=== PATIENT | female | born 1970 | race Caucasian/White ===

== ENCOUNTER 2022-02-07 14:26 | Outpatient (CLI) | payer OTHER, SELFPAY ==
--- NOTE | ~2022-02-07 | XR_ITS ---
XR chest 2V DATE: 02/07/2022 14:51 INDICATION: Dyspnea, cough, shortness of breath. Smoker. TECHNIQUE: 2 views COMPARISON: None FINDINGS: Moderate bilateral hyperinflation. No pulmonary infiltrate or consolidation, pleural effusi on or pulmonary vascular congestion or pneumothorax. Normal heart size. No hilar or mediastinal enlar gement. IMPRESSION: Moderate bilateral hyperinflation; no active cardiopulmonary disease Reviewed, dictated and finalized at location B. IMPRESSION: Moderate bilateral hyperinflation; no active cardiopulmonary diseas e
== END 2022-02-07 14:27 | disposition home or self-care (01) ==
PROVIDERS: PCP Physician Assistant; Visit Provider Physician Assistant
DX: R06.00 Dyspnea, unspecified (principal)
CPT/HCPCS: 71046

== ENCOUNTER 2022-06-08 14:13 | Emergency (ER) | payer OTHER, SELFPAY ==
--- NOTE | ~2022-06-08 | XR_ITS ---
EXAMINATION: XR chest 1V portable INDICATION: Cough and fever TECHNIQUE: Portable AP chest at 1517 hours COMPARISON: 02/07/2022 FINDINGS: The lungs are free of acute opacities. No pleural effusion or pneumothorax. The cardiomedia stinal silhouette is normal. IMPRESSION: 1. No acute cardiopulmonary abnormality. Reviewed, dictated and finalized at location L. [employer]
[2022-06-08 14:35] VITALS: BP 148/76; PULSE 104; RESP 20; TEMP 36.7; O2SAT 100
[2022-06-08 14:38] VITALS: O2SAT 100
--- NOTE | 2022-06-08 15:02 | ECG_ITS ---
Measurements Intervals Seltzer Rate: 99 P: 71 TX: 134 QRS: 62 QRSD: 98 T: 41 QT: 316 QTc: 406 Interpretive Statements SINUS RHYTHM SMALL, NON DIAGNOSTIC INFERIOR Q-WAVE WITHIN NORMAL LIMITS NO PREVIOUS ECG AVAILABLE FOR COMPARISON Electronically Signed On 06-09-2022 14:36:16 HEALTHCARE ADMINISTRATOR by Domenico Núñez M.D.
--- NOTE | 2022-06-08 15:02 | ED.GENADULT ---
HPI - General Adult General Chief complaint: Shortness of Breath/Dyspnea Stated complaint: UNKNOWN Time Seen by Provider: 06/08/22 14:20 History of Present Illness HPI narrative: The patient is a 51-year-old woman with history of hypertension, anxiety disorder, COPD but not on inhalers or nebulizer treatments or oxygen, ex-smoker. She is status post bilateral tubal ligation, hysterectomy, and polypectomy in her vocal cords. She does take Valium as needed 5 mg. For the last 3 days, the patient has had upper respiratory tract infection symptoms consisting of a fever maximum 103?, chills, but no diaphoresis. Also has diffuse myalgias with aches and pains as well as a headache. Occasional cough. No rhinorrhea or nasal congestion but does have a sore throat. With her coughing spells, she has developed chest pain which is centered in the upper sternal region throat region. She felt that she was not going to make it so she took a dose of diazepam on the way here, 5 mg. No abdominal pain or nausea or vomiting or UTI symptoms. Related Data Allergies Allergy/AdvReac Type Severity Reaction Status Date / Time No Known Allergies Allergy Unverified 11/09/15 14:07 Review of Systems Review of Systems: All systems reviewed & are unremarkable except as noted in HPI and below Constitutional: Constitutional: Reports no additional constitutional complaints, Denies anorexia, Reports body ache(s), Reports chills, Denies excessive sweating, Reports fatigue, Reports fever(s), Denies frequent falls, Reports headache(s), Reports malaise and Denies poor appetite Eyes: Eyes: Reports no additional eye complaints, Denies blurry vision, Denies change in vision, Denies irritation, Denies itchy eyes and Denies photophobia ENT: Reports system reviewed and no additional complaints, except as documented, Reports Normal hearing present, Denies change in voice, Denies dysphagia, Denies vertigo, Denies dizziness, Denies ear discharge, Reports headache(s), Denies hearing loss, Denies hoarseness, Denies nasal congestion, Denies neck pain, Denies sinus pressure, Reports sore throat and Denies throat swelling Cardiovascular: Cardiovascular: Reports no additional cardiovascular complaints, Denies chest pain, Denies syncope, Denies rapid heart rate, Denies irregular heart rhythm, Denies leg edema, Denies dyspnea and Denies slow heart rate Respiratory: Respiratory: Reports no additional respiratory complaints, Reports cough, Denies dyspnea, Denies stridor and Denies wheezing Gastrointestinal: Gastrointestinal: Reports no additional gastrointestinal complaints, Denies abdominal pain, Denies melena, Denies hematochezia, Denies dysphagia, Denies diarrhea, Denies nausea and Denies vomiting Genitourinary: Genitourinary: Denies hematuria, Denies urinary frequency, Denies dysuria, Denies flank pain and Denies urinary urgency Musculoskeletal: Musculoskeletal: Reports no additional musculoskeletal complaints, Denies abnormal gait, Denies back pain, Reports myalgias, Denies arthralgias, Denies joint swelling, Denies limited range of motion, Denies muscle cramps, Denies muscle weakness, Denies neck pain and Denies numbness Integumentary/Breasts: Skin/Breast: Reports system reviewed and no additional complaints, except as docu, Denies breast pain, Denies change in pigmentation, Denies pruritus, Denies erythema and Denies wounds Neurologic: Reports system reviewed and no additional complaints, except as documented, Reports Normal hearing present, Denies Abnormal speech present, Denies abnormal gait, Denies confusion, Denies vertigo, Denies dizziness, Denies syncope, Denies frequent falls, Denies headache(s), Denies focal weakness, Denies numbness and Denies paresthesias Psychiatric: Psychiatric: Reports no additional psychiatric complaints, Reports anxiety and Denies confusion Endocrine: Endocrine: Reports no additional endocrine complaints, Denies cold intolerance, Denies excessive sweating, De
[2022-06-08 15:31] LABS: Basophils Absolute Auto 0.01 K/mm3 (0.00-0.10); Basophils Percent Auto 0.2 % (0.0-1.0); Hematocrit 39.9 % (35.0-49.0); Hemoglobin 13.6 g/dL (12.0-15.0); Immature Granulocyte Absolute 0.02 K/mm3 (0.00-0.00); Immature Granulocyte Percent A 0.3 % (0.0-0.0); Lymphocytes Percent Auto 11.1 % (18.0-42.0); Mean Corpuscular HGB Conc 34.1 g/dL (32.0-36.0); Mean Corpuscular Hemoglobin 31.3 pg (27.0-31.0); Mean Corpuscular Volume 91.7 fL (78.0-102.0); Mean Platelet Volume 9.5 fl (9.2-11.8); Monocytes Absolute Auto 0.54 K/mm3 (0.10-0.90); Monocytes Percent Auto 8.6 % (2.0-11.0); Neutrophils Percent Auto 79.8 % (50.0-70.0); Platelet Count Result 193 K/mm3 (150-420); Red Blood Count 4.35 M/mm3 (4.20-5.40); White Blood Count 6.3 K/mm3 (4.8-10.8)
[2022-06-08] MEDS: IBUPROFEN 400 MG TABLET 800 MG PO (15:45)
[2022-06-08] MEDS: ACETAMINOPHEN 500 MG TABLET 1000 MG PO (15:45)
[2022-06-08 15:46] LABS: Strep Group A RT-PCR NOT DETECTED (Negative)
[2022-06-08 15:49] LABS: Influenza A QL RT-PCR Positive (Negative); Influenza B QL RT-PCR Negative (Negative); SARS-CoV-2 RNA PCR Negative (Negative)
[2022-06-08 15:50] LABS: D Dimer 0.24 mg/L (0.19-0.50)
[2022-06-08 15:52] LABS: Alanine Aminotransferase 32 U/L (14-59); Albumin Level 3.8 g/dL (3.4-5.0); Alkaline Phosphatase 47 U/L (46-116); Anion Gap 11 mmol/L (8-16); Aspartate Amino Transferase 17 U/L (15-37); Bilirubin,Total 0.4 mg/dL (0.00-1.00); Blood Urea Nitrogen 6 mg/dL (7-18); CRP 8.6 mg/dL (0.0-0.9); Calcium 8.6 mg/dL (8.5-10.1); Carbon Dioxide 25 mmol/L (21-32); Chloride 98 mmol/L (98-108); Estimated CRCL calculation 68 ml/min; Estimated Glomerular Filt Rate > 60; Glucose 114 mg/dL (70-99); Osmolality Calculated 276 mOsm/kg (285-295); Potassium 3.6 mmol/L (3.5-5.1); Sodium 134 mmol/L (136-145); Total Protein 7.3 g/dL (6.4-8.2)
[2022-06-08 15:53] LABS: Troponin I < 4.0 ng/L (0.00-60.4)
[2022-06-08 15:53] LABS: RSV RNA, RT-PCR Negative (Negative)
[2022-06-08 17:10] LABS: Erythrocyte Sedimentation Rate 26 mm/hr (0-20)
[2022-06-08] MEDS: BENZONATATE 100 MG CAPSULE PO (17:39)
[2022-06-08 17:41] VITALS: BP 102/65; PULSE 91; RESP 20; TEMP 36.1; O2SAT 97
[2022-06-08 17:54] VITALS: PULSE 106
== END 2022-06-08 17:54 | disposition home or self-care (01) ==
PROVIDERS: Emergency Provider Emergency Medicine; PCP Physician Assistant
DX: J10.1 Influenza due to other identified influenza virus with other respiratory manifestations (principal); F41.9 Anxiety disorder, unspecified; I10 Essential (primary) hypertension; J44.9 Chronic obstructive pulmonary disease, unspecified; Z87.891 Personal history of nicotine dependence; Z20.822 Contact with and (suspected) exposure to COVID-19
CPT/HCPCS: 36415; 71045; 80053; 84484; 85025; 85380; 85652; 86140; 87637; 87651; 93005; 99284; A9270

== ENCOUNTER 2022-08-25 13:50 | Emergency (ER) | payer BC, SELFPAY ==
--- NOTE | ~2022-08-25 | XR_ITS ---
EXAMINATION: XR chest 2V 08/25/2022 15:04 INDICATION: Chest pain. PROCEDURE: Two-view chest COMPARISON: 06/08/2022 FINDINGS: The lungs are clear. The cardiomediastinal silhouette is within normal limits. There are no pleural effusions. There is no pneumothorax suspected. IMPRESSION: 1: NO ACUTE CARDIOPULMONARY DISEASE. Reviewed, dictated and finalized at location A.
[2022-08-25 14:20] VITALS: BP 179/98; PULSE 80; RESP 20; TEMP 36.8; O2SAT 100
--- NOTE | 2022-08-25 14:39 | ECG_ITS ---
Measurements Intervals Reeves Rate: 96 P: 73 MT: 157 QRS: 44 QRSD: 90 T: 46 QT: 342 QTc: 433 Interpretive Statements SINUS RHYTHM MINIMAL Q WAVES- INFERIOR LEADS CONSIDER ANTERIOR INFARCT, AGE INDETERMINATE BASELINE ARTIFACT- II, III, AVR ABNORMAL ECG COMPARED TO ECG 06/08/2022 15:12:50 NO SIGNIFICANT CHANGES Electronically Signed On 08-25-2022 16:00:13 CDT by Skyler Ramirez D.O.
--- NOTE | 2022-08-25 14:41 | ED.GENADULT ---
HPI - General Adult General Chief complaint: Anxiety Stated complaint: lymph nodes swollen/not feeling well/throat hurts Time Seen by Provider: 08/25/22 14:09 History of Present Illness HPI narrative: the patient is a 52-year-old woman with history of anxiety, on diazepam, last use of diazepam was 2 weeks ago. She also has hypertension and has not taken medications elevated blood pressure for 2 weeks. She has been at [facility] for cervical lymphadenopathy. She had an FNA on June 23, 2022 that did not reveal any lymphoma. This was preceded by an ultrasound of the neck on June 16, 2022 that showed mild cervical lymphadenopathy. She subsequently underwent a chest x-ray on 07/19/[address] of the head that were both unremarkable. She has had routine blood work that was negative. She is scheduled by her PCP for a nuclear medicine stress test, event monitor, and an echo in the next few weeks. She presents with continued complaints of which she describes as swelling in the neck, with tender lymph nodes right, and now left, anterior cervical chain. She had an anxiety attack at work, whereby she felt her heart rate go up with an episode of chest discomfort radiating to the left shoulder, tingling in the hands and feet, lasted approximately 1 hour. She calmed down on her own, but now is getting worked up again. She is also concerned about lumps involving the roof of the mouth. She has seen an ENT for this in the past. She denies other complaints. Related Data Home Medications Medication Instructions Recorded Confirmed diazepam 5 mg tablet 5 mg PO DAILY 08/25/22 08/25/22 losartan 100 mg tablet 100 mg PO DAILY 08/25/22 08/25/22 Allergies Allergy/AdvReac Type Severity Reaction Status Date / Time No Known Allergies Allergy Unverified 11/09/15 14:07 Review of Systems Review of Systems: All systems reviewed & are unremarkable except as noted in HPI and below Constitutional: Constitutional: Reports as per HPI, Reports no additional constitutional complaints, Denies chills, Denies excessive sweating, Denies fatigue, Denies fever(s), Denies headache(s) and Denies weakness Eyes: Eyes: Reports as per HPI, Reports no additional eye complaints, Denies change in vision and Denies photophobia ENT: Reports system reviewed and no additional complaints, except as documented, Reports as per HPI, Denies dysphagia, Denies vertigo, Denies dizziness, Denies headache(s), Denies lip swelling, Denies nasal congestion, Denies sore throat, Denies throat swelling and Denies tongue swelling Comments: feels a lump in her throat. and feels that her neck is swollen. Cardiovascular: Cardiovascular: Reports as per HPI, Reports no additional cardiovascular complaints, Reports chest pain, Denies syncope, Denies rapid heart rate and Denies dyspnea Respiratory: Respiratory: Reports as per HPI, Reports no additional respiratory complaints, Denies chest congestion, Denies cough, Denies dyspnea and Denies wheezing Gastrointestinal: Gastrointestinal: Reports as per HPI, Reports no additional gastrointestinal complaints, Denies abdominal pain, Denies constipation, Denies dysphagia, Denies diarrhea, Denies nausea and Denies vomiting Genitourinary: Genitourinary: Reports as per HPI, Denies hematuria, Denies urinary frequency, Denies dysuria, Denies urinary incontinence and Denies urinary urgency Musculoskeletal: Musculoskeletal: Reports no additional musculoskeletal complaints, Denies back pain, Denies myalgias, Denies arthralgias, Denies joint swelling and Denies numbness Integumentary/Breasts: Skin/Breast: Reports system reviewed and no additional complaints, except as docu, Denies pruritus, Denies erythema, Denies rash and Denies skin ulcer Neurologic: Reports system reviewed and no additional complaints, except as documented, Reports as per HPI, Denies confusion, Denies vertigo, Denies dizziness, Denies syncope, Denies headache(s), Denies focal weakness, D
[2022-08-25 15:02] LABS: Basophils Absolute Auto 0.02 K/mm3 (0.00-0.10); Basophils Percent Auto 0.3 % (0.0-1.0); Eosinophils Absolute Auto 0.02 K/mm3 (0.02-0.50); Eosinophils Percent Auto 0.3 % (1.0-6.0); Hematocrit 41.6 % (35.0-49.0); Hemoglobin 14.4 g/dL (12.0-15.0); Immature Granulocyte Absolute 0.01 K/mm3 (0.00-0.00); Immature Granulocyte Percent A 0.2 % (0.0-0.0); Lymphocytes Absolute Auto 1.92 K/mm3 (1.10-4.50); Lymphocytes Percent Auto 30.5 % (18.0-42.0); Mean Corpuscular HGB Conc 34.6 g/dL (32.0-36.0); Mean Corpuscular Hemoglobin 31.8 pg (27.0-31.0); Mean Corpuscular Volume 91.8 fL (78.0-102.0); Mean Platelet Volume 9.5 fl (9.2-11.8); Monocytes Absolute Auto 0.48 K/mm3 (0.10-0.90); Monocytes Percent Auto 7.6 % (2.0-11.0); Neutrophils Absolute Auto 3.8 K/mm3 (1.7-7.2); Neutrophils Percent Auto 61.1 % (50.0-70.0); Platelet Count Result 250 K/mm3 (150-420); Red Blood Count 4.53 M/mm3 (4.20-5.40); Red Cell Distribution Width 11.5 % (11.6-14.4); White Blood Count 6.3 K/mm3 (4.8-10.8)
[2022-08-25 15:06] LABS: Appearance Urine Clear (Clear); Bilirubin Urine Negative (Negative); Blood Urine Trace-Intact (Negative); Color Urine Light Yellow (Yellow); Glucose Urine UA Negative (Negative); Ketones Urine Trace (Negative); Leukocyte Esterase Ur Negative LEU/UL (Negative); Nitrate Urine Negative (Negative); Protein Urine Negative (Negative); Specific Grav Ur 1.025 (1.010-1.020); Urobilinogen Urine 0.2 mg/dL (0.2-1.0)
[2022-08-25 15:17] LABS: Alanine Aminotransferase 21 U/L (14-59); Albumin Level 4.4 g/dL (3.4-5.0); Alkaline Phosphatase 50 U/L (46-116); Anion Gap 9 mmol/L (8-16); Aspartate Amino Transferase 15 U/L (15-37); Bilirubin,Total 0.5 mg/dL (0.00-1.00); Blood Urea Nitrogen 9 mg/dL (7-18); Calcium 9.3 mg/dL (8.5-10.1); Carbon Dioxide 29 mmol/L (21-32); Chloride 102 mmol/L (98-108); Estimated CRCL calculation 83 ml/min; Estimated Glomerular Filt Rate > 60; Glucose 94 mg/dL (70-99); Osmolality Calculated 288 mOsm/kg (285-295); Potassium 3.6 mmol/L (3.5-5.1); Sodium 140 mmol/L (136-145); Total Protein 7.4 g/dL (6.4-8.2)
[2022-08-25] MEDS: KETOROLAC 30 MG/ML VIAL (*BKC) IV PUSH (15:17)
[2022-08-25] MEDS: MAG HYDROX/ALUMINUM HYD/SIMETH 30 ML, PHENobarb/HYOSCY/ATROPINE/SCOP 32.4 MG, LIDOCAINE... PO (15:17)
[2022-08-25 15:20] LABS: Add Urine Microscopic? YES; Troponin I < 4.0 ng/L (0.00-60.4)
[2022-08-25 15:21] LABS: Bacteria Urine Trace /hpf; RBC Urine 0-2 /hpf (0-2); Squamous Epithelial Cell Urine Few /hpf (Few); WBC Urine 0-3 /hpf (0-3)
[2022-08-25 15:22] LABS: Monoscreen Negative (Negative); Negative Monotest Control Negative (Negative); Positive Monotest Control Positive (Positive)
[2022-08-25 15:38] LABS: Strep Group A RT-PCR NOT DETECTED (Negative)
[2022-08-25 15:42] LABS: Influenza A QL RT-PCR Negative (Negative); Influenza B QL RT-PCR Negative (Negative); SARS-CoV-2 RNA PCR Negative (Negative)
[2022-08-25 15:46] LABS: RSV RNA, RT-PCR Negative (Negative)
[2022-08-25 16:55] VITALS: BP 140/76; PULSE 72; RESP 20; TEMP 36.8; O2SAT 94
== END 2022-08-25 17:55 | disposition home or self-care (01) ==
PROVIDERS: Emergency Provider Emergency Medicine; PCP Physician Assistant
DX: F41.9 Anxiety disorder, unspecified (principal); I10 Essential (primary) hypertension; F17.200 Nicotine dependence, unspecified, uncomplicated; Z20.822 Contact with and (suspected) exposure to COVID-19
CPT/HCPCS: 36415; 71046; 80053; 81001; 84484; 85025; 86308; 87637; 87651; 93005; 96374; 99284; A9270; J1885

== ENCOUNTER 2023-12-23 10:16 | Emergency (ER) | payer BC, SELFPAY ==
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
[2023-12-23 10:27] VITALS: BP 174/75; PULSE 68; RESP 16; TEMP 36.4; O2SAT 100
[2023-12-23 10:54] VITALS: BP 174/75; PULSE 68; RESP 16; TEMP 36.4; O2SAT 100
== END 2023-12-23 11:25 | disposition home or self-care (01) ==
PROVIDERS: Emergency Provider Nurse Practitioner Family; PCP Family Medicine
DX: S80.01XA Contusion of right knee, initial encounter (principal); W19.XXXA Unspecified fall, initial encounter; F17.200 Nicotine dependence, unspecified, uncomplicated; I10 Essential (primary) hypertension; J43.9 Emphysema, unspecified; F41.9 Anxiety disorder, unspecified
CPT/HCPCS: 73564; 99213; G0463

== ENCOUNTER 2024-06-18 13:24 | Emergency (ER) | payer OTHER, SELFPAY ==
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
--- NOTE | ~2024-06-18 | XR_ITS ---
XR foot RT min 3V Ordering provider: Zeb Tanner MD History: . foot pain . Comparison: None. FINDINGS: BONES: Fracture of the lateral malleolus. JOINT SPACES: Normal. No tarsal coalition. SOFT TISSUES: Normal. IMPRESSION: Nondisplaced fracture of the lateral malleolus. Reviewed, dictated and finalized at location A. DOCTOR
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
[2024-06-18 13:26] VITALS: BP 147/96; PULSE 87; RESP 18; TEMP 36.8; O2SAT 99
[2024-06-18] MEDS: ONDANSETRON HCL ODT 4 MG TABLET PO (14:52)
[2024-06-18] MEDS: HYDROmorphone HCL INJ (*CRX) 2 MG/ML VIAL 0.5 MG IM (14:52)
[2024-06-18 14:54] VITALS: BP 141/75; PULSE 74; RESP 18; TEMP 37.3; O2SAT 98
[2024-06-18 15:40] VITALS: BP 122/85; PULSE 79; RESP 20; TEMP 37.2; O2SAT 99
== END 2024-06-18 15:40 | disposition home or self-care (01) ==
PROVIDERS: Emergency Provider Internal Medicine Critical Care Medicine; PCP Physician Assistant
DX: S82.64XA Nondisplaced fracture of lateral malleolus of right fibula, initial encounter for closed fracture (principal); X50.0XXA Overexertion from strenuous movement or load, initial encounter; F17.210 Nicotine dependence, cigarettes, uncomplicated
CPT/HCPCS: 29515; 73610; 73630; 96372; 99283; A9270; J1171

== ENCOUNTER 2024-06-23 09:42 | Outpatient (CLI) | payer OTHER, SELFPAY ==
--- NOTE | ~2024-06-23 | CT_ITS ---
EXAMINATION: CT ankle RT wo con DATE: 06/23/2024 10:04 INDICATION: Other fracture of right lower leg, initial encounter. TECHNIQUE: Computed tomography (CT) of the right ankle was performed without intravenous contrast. Au tomated exposure control and iterative reconstruction technique were employed. The dose-length produc t was 180.40 mGy-cm. COMPARISON: Right ankle radiographs 06/20/2024 FINDINGS: There is a comminuted fracture of distal fibula including an oblique fracture with medial a spect 5 mm proximal to the level of the tibial plafond with 2 mm posterolateral displacement of the d istal fracture fragment and avulsion fractures at the attachments of anterior tibiofibular ligament a nd anterior talofibular ligament. There is a punctate avulsion fracture of anterior process of calcan eus seen on one sagittal image. There is an osteochondral lesion of medial talar dome with an in situ fragment. 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 There is subcutane ous edema involving the foot and ankle. IMPRESSION: 1. Comminuted fracture of distal fibula. 2. Punctate avulsion fracture of anterior process of calcaneus. 3. 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 Reviewed, dictated and finalized at location A. WASHER
== END 2024-06-23 09:43 | disposition home or self-care (01) ==
PROVIDERS: PCP Family Medicine; Visit Provider Orthopaedic Surgery
DX: S82.891A Other fracture of right lower leg, initial encounter for closed fracture (principal); S92.011A Displaced fracture of body of right calcaneus, initial encounter for closed fracture; X58.XXXA Exposure to other specified factors, initial encounter; M93.261 Osteochondritis dissecans, right knee
CPT/HCPCS: 73700

== ENCOUNTER 2025-01-05 18:04 | Emergency (ER) | payer OTHER, SELFPAY ==
[2025-01-05 18:04] VITALS: BP 184/105; PULSE 84; RESP 20; TEMP 36.7; O2SAT 99
--- OUTSIDE RECORDS SUMMARY | 2025-01-05 18:09 | XMS_ITS | Data Portability ---
Author Organization [facility] TWINVolodymyr Address [address] [facility] [place] [address] Care Team Providers Care System Software Developer Name Role Phone SLOANE DIAZ [facility] Assessment No assessment recorded. Plan of Treatment Reminders Order Date Submit Date Provider Last Modified By Organization Details Last Modified Time Details Appointments None recorded. Lab fecal fat, qualitative , stool 2024 025 [email or web address] [place] [facility], [address] [facility] [place], [address], 5 14:41:58 calprotecti n, stool 2024 025 [email or web address] Alli [place] [facility], [address] [facility] [place], [address], 5 14:42:08 lipase, serum or plasma 2024 025 [facility], 1 [facility] [place], [address], 5 12:19:10 CMP, serum or plasma 2024 025 [facility], [address] [facility] [place], [address], 5 12:19:10 CBC w/ auto diff 2024 025 [facility], [address] [facility] [place], [address], 5 12:19:10 iron + total iron-bindin g capacity (TIBC), serum 2024 025 [facility], 1 [facility] [place], [address], 5 12:19:10 ferritin, serum or plasma 2024 025 [facility], 1 [facility] [place], [address], 5 12:19:10 Referral gastroenter ologist referral 2024 025 ANDRES Patel MD, [address] [facility] [address], [place], [address], 5 13:48:48 physical therapist referral - 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 Surgeries None recorded. Imaging XR, foot, 3 or more view - point tenderness at base of 5th metatarsal after falls; has healing distal fibular fracture with abnormality seen on recent ankle XR [email or web address] [facility], [address] [facility] [place], [address], 5 17:17:47 XR, ankle, 3 or more view - fell on right leg; recovering from known fibula fracture 2024 025 [facility], 1 [facility] [place], [address], 5 19:56:52 Medication Orders escitalopra m 10 mg tablet 2024 025 [id number], [address] [place], [place], [id number], 5 16:21:39 escitalopra m 20 mg tablet 2023 025 ANDRES [facility] #[id number], [address], [place], [place], [id number], 16:19:48 Patient TargetsNo targets recorded. 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 not improved after seeing chiropractor Referring Physician: Sloane Diaz [facility], Encounter Date: 02/08/2024 [employer] Referral for Hematochezia Referring Physician: Sloaen Diaz [facility], Encounter Date: 08/26/2024 Results Created Date Observation Date Name Description Value Unit Range Abnormal Flag Note LastModifiedBy Organization Detail LastModifiedTime 02/04/2002/05/2024 RHEUM ATOID ARTHR ITIS PROFI LE rheumatoid factor (rf) <10.0 Not Available [facility] ([facility]) [address] [place], [address], 02/05/2024 12:36:43 02/04/20 24 02/05/2024 RHEUM ATOID ARTHR ITIS PROFI LE anti-ccp Ab, IgG/IgA 4 units 0-19 Negat javier <20 Weak posit javier 20 - 39 Moder ate posit javier 40 - 59 Stron g posit javier >59 Not Available [facility] ([facility]) [address] [place], [address], 02/05/2024 12:36:43 02/04/20 24 02/05/2024 LIPID PANEL cholesterol, total 245 mg/dL 100-19 9 above high normal Not Available [facility] ([facility]) [address] [place], [address], 02/05/2024 12:36:44 08/26/20 24 02/05/2024 LIPID PANEL triglyceride s 159 mg/dL 0-149 above high normal Not Available [facility] ([facility]) [address] [place], [address], 02/05/2024 12:36:44 02/04/20 24 02/05/2024 LIPID PANEL HDL cholesterol 53 mg/dL >39 Not Available [facility] ([facility]) [address] [place], [address], 02/05/2024 12:36:44 02/04/20 24 02/05/2024 LIPID PANEL VLDL cholesterol huy 29 mg/dL 5-40 Not Available [facility] ([facility]) [address] [place], [address], 02/05/2024 12:36:44 02/04/20 24 02/05/2024 LIPID PANEL LDL chol calc ([facility]) 163 mg/dL 0-99 above high normal Not Available [facility] ([facility]) [address] [place], [address], 02/05/2024 12:36:44 02/04/20 24 02/05/2024 BASIC METAB OLIC PANEL (8) glucose 106 mg/dL 70-99 above high normal Not Available [facility] ([facility]) [address] [place], [address], 02/05/2024 12:36:45 02/04/20 24 02/05/2024 BASIC METAB OLIC PANEL (8) BUN 15 mg/dL 6-24 Not Available [facility] ([facility]) [address] [place], [address], 02/05/2024 12:36:45 02/04/20 24 02/05/2024 BASIC METAB OLIC PANEL (8) creatinine 0.70 mg/dL 0.57-1 .00 Not Available [facility] ([facility]) [address] [place], [address], 02/05/2024 12:36:45 02/04/20 24 02/05/2024 BASIC METAB OLIC PANEL (8) eGFR 103 mL/mi n/1.7 3 >59 Not Available [facility] ([facility]) [address] [facility], [place], [address], 02/05/2024 12:36:45 02/04/20 24 02/05/2024 BASIC METAB OLIC PANEL (8) BUN/creatini ne ratio 21 9-23 Not Available [facility] ([facility]) [address] [facility], [place], [address], 02/05/2024 12:36:45 02/04/20 24 02/05/2024 BASIC METAB OLIC PANEL (8) sodium 141 mmol/ L 134-14 4 Not Available [facility] ([facility]) [address] [facility], [place], [address], 02/05/2024 12:36:45 02/04/20 24 02/05/2024 BASIC METAB OLIC PANEL (8) potassium 4.5 mmol/ L 3.5-5. 2 Not Available [facility] ([facility]) [address] [facility], [place], [address], 02/05/2024 12:36:45 02/04/20 24 02/05/2024 BASIC METAB OLIC PANEL (8) chloride 101 mmol/ L 96-106 Not Available [facility] ([facility]) [address] [place], [address], 02/05/2024 12:36:45 02/04/20 24 02/05/2024 BASIC METAB OLIC PANEL (8) carbon dioxide, total 24 mmol/ L 20-29 Not Available [facility] ([facility]) [address] [place], [address], 02/05/2024 12:36:45 02/04/20 24 02/05/2024 BASIC METAB OLIC PANEL (8) calcium 9.7 mg/dL 8.7-10 .2 Not Available [facility] ([facility]) [address] [place], [address], 02/05/2024 12:36:45 02/04/20 24 02/05/2024 HEMOG LOBIN A1C hemoglobin A1C 5.5 % 4.8-5. 6 Predi abete s: 5.7 - 6.4 Diabe alcon: >6.4 Glyce kaity contr ol for adult s with diabe alcon: <7.0 Not Available [facility] ([facility]) [address] [place], [address], 02/05/2024 12:36:46 02/04/20 24 02/05/2024 SEDIM ENTAT ION RATE- WESTE RGREN sedimentatio n rate-westerg rehan 3 mm/HR 0-40 Not Available [facility] ([facility]) [address] [place], [address], 02/05/2024 12:36:46 02/04/20 24 02/05/2024 C-SG CTIVE PROTE IN, QUANT C-reactive protein, quant 3 mg/L 0-10 Not Available [facility] ([facility]) [address] [place], [address], 02/05/2024 12:36:47 09/09/19 25 09/09/2024 FECAL FAT, QUALI TATIV E fats, neutral NORMAL Suri l (<60 Dropl ets/H PF) Not Available [facility] ([facility]) [address] [place], [address], 09/09/2024 16:37:44 09/09/19 25 09/09/2024 FECAL FAT, QUALI TATIV E fats, total NORMAL Suri l (<100 Dropl ets/H PF) Not Available [facility] ([facility]) [address] [place], [address], 09/09/2024 16:37:44 09/09/19 25 09/10/2024 CALPR OTECT IN, FECAL calprotectin , fecal 7 ug/g 0-120 Leticia ntrat ion Inter preta tion Follo w-Up < 5 - 50 ug/g Suri l None >50 -120 ug/g Borde rline Re-ev aluat e in 4-6 weeks >120 ug/g Abnor mal Repea t as clini sherlyn indic ated Not Available [facility] ([facility]) [address] [facility], [place], [address], 09/10/2024 16:38:04 06/23/19 25 06/23/2024 CT, ankle , w/o contr ast No observ ation record ed. [email or web address] [facility] [address] [address], [place], [address], 06/25/2024 13:42:06 08/29/19 25 08/28/2024 XR, ankle , 3 or more view No observ ation record ed. [address] , [place], [address], 09/04/2024 18:00:37 Result Notes None recorded. 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 2019 [place] [facility] 09:40:35 Esophageal dysphagia 15209873 Active 2020 D[place], [place] [facility] 14:48:19 Chronic anxiety 967825359 Active 2020 Jose Hernandez PA-C Attn: Dhaval g,[address] [facility], [place], [address], [place] [facility] 1 14:55:33 Essential hypertension 40674691 Active 2020 Jose Hernandez PA-C Attn: Dhaval mohr,[address] [facility], [place], [address], [place] [facility] 1 12:15:25 Generalized anxiety disorder 05429521 Active 2022 SLOANE DIAZ MD Attn: Dhaval mohr,[address] [facility], [place], [address], [place] [facility] 3 15:38:14 Dyslipidemia 649039026 Active 2023 SLOANE DIAZ MD Attn: Dhaval mohr,[address] [facility], [place], [address], [place] [facility] 4 17:42:55 Dysphagia 28638022 Active 2023 SLOANE DIAZ MD Attn: Dhaval mohr,[address] [facility], [place], [address], [place] [facility] 4 17:42:56 Vitamin D deficiency 21570342 Active 2023 SLOANE DIAZ MD Attn: Dhaval mohr,[address] [facility], [place], [address], [place] [facility] 4 10:46:38 Prediabetes 802584283 Active 2023 SLOANE DIAZ MD Attn: Joonscarlett mohr,[address] [facility], [place], [address], [place] [facility] 4 10:46:39 Problem Notes None recorded. Procedures Surgical History Date Name Laterality Status Provider Name and Address Organization Details Recorded Time 05/23/20 23 Date of Last Mammogram completed Abi Almeida MA [facility] 02/01/2024 16:10:17 12/27/19 19 Total hysterectomy completed Abi Almeida [facility] 01/09/2019 09:48:11 02/24/20 18 Date of Last Pap Smear completed Kati St MA [place] [facility] 01/19/2022 11:48:05 Tubal Ligation completed Abi [place]me[place] - [facility] 11/11/2018 14:33:33 Imaging Results None recorded. Procedure Notes None recorded. Medical Equipment None Reported. Allergies Allergen ID Allergen Name Allergen Category Reaction Reaction Severity Criticality Documentation Date Start Date Code Code System Note Provider Name and Address Organization Details Recorded Time 678878 No known allergy (situatio n) Not available Not available Not available Not available 09/30/2020 08172 6003 SNOMED [place] 14:48:18 488015 lisinopri l medicatio n cough swelling moderate moderate Not available 03/08/20212020 36392 RxNorm D[place] [facility] 14:48:18 Medications Name Sig Start Date Stop Date Status Note LastModified by Organization Details LastModified Time losartan 50 mg tablet Take 1 tablet every day by oral route for 90 days. 05/14 completed Not Available Not Available Not Available amoxicill in 500 mg capsule Take 1 capsule 3 times a day by oral route for 10 days. 09/01 completed Not Available Not Available Not Available buspirone 5 mg tablet Take 1 tablet twice a day by oral route for 90 days. 01/19 completed Not Available Not Available Not Available bupropion HCl SR 150 mg tablet,12 hr sustained -release Take 1 tablet twice a day by oral route for 90 days. 11/11 completed Not Available Not Available Not Available clonidine HCl 0.1 mg tablet Take 1 tablet by oral route as needed for 90 days. 09/20 completed Not Available Not Available Not Available prednison e 10 mg tablet Take 5 tablets every day by oral route for 5 days. 12/07 completed Not Available Not Available Not Available atorvasta tin 20 mg tablet Take 1 tablet every day by oral route for 90 days. 06/22 completed Not Available Not Available Not Available naproxen 375 mg tablet 03/08 completed Not Available Not Available Not Available clindamyc in HCl 300 mg capsule 04/04 completed Not Available Not Available Not Available ibuprofen 800 mg tablet 01/31 completed Not Available Not Available Not Available metoprolo l succinate ER 50 mg tablet,ex tended release 24 hr Take 1 tablet every day by oral route. active Not Available Not Available No t Available sumatript an 100 mg tablet 08/09 completed Not Available Not Available Not Available hydrocodo ne 5 mg-acetam inophen 325 mg tablet 1 {tbl} by oral route. 09/01 completed Not Available Not Available Not Available lisinopri l 20 mg tablet Take 1 tablet every day by oral route for 90 days. 12/07 completed Not Available Not Available Not Available Medrol (Elvis) 4 mg tablets in a dose pack Take 1 dose pk by oral route as directed . 08/16 completed Not Available Not Available Not Available prednison e 20 mg tablet 60 mg by oral route. 10/04 completed Not Available Not Available Not Available amlodipin e 5 mg tablet Take 1 tablet every day by oral route for 90 days. 03/08 completed Not Available Not Available Not Available omeprazol e 40 mg capsule,d elayed release 09/01 completed Not Available Not Available Not Available amoxicill in 875 mg tablet Take 1 tablet every 12 hours by oral route for 10 days. 09/30 completed Not Available Not Available Not Available alprazola m 0.25 mg tablet Take 1 tablet 3 times a day by oral route for 30 days. 06/16 completed Not Available Not Available Not Available diazepam 2 mg tablet TAKE ONE TABLET BY MOUTH THREE TIMES A DAY NEEDED FOR 30 DAYS 07/20 completed Not Available Not Available Not Available cephalexi n 500 mg capsule Take 1 capsule 3 times a day by oral route for 10 days. 03/08 completed Not Available Not Available Not Available venlafaxi ne 37.5 mg tablet Take 1 tablet twice a day by oral route as directed . 02/19 completed Not Available Not Available Not Available nitroglyc asad 0.4 mg sublingua l tablet Place 1 tablet by sublingu al route. 03/08 completed Not Available Not Available Not Available mupirocin calcium 2 % topical cream APPLY A SMALL AMOUNT TO THE AFFECTED AREA BY TOPICAL ROUTE 3 TIMES PER DAY FOR 10 DAYS 03/08 completed Not Available Not Available Not Available omeprazol e 20 mg capsule,d elayed release Take 20 mg by oral route. 03/08 completed Not Available Not Available Not Available aspirin 81 mg chewable tablet Chew 4 tablets by oral route. 12/08 completed Not Available Not Available Not Available hydrocort isone 2.5 % topical cream APPLY A THIN LAYER TO THE AFFECTED AREA(S) BY TOPICAL ROUTE 2 TIMES PER DAY 09/01 completed Not Available Not Available Not Available acetamino phen 300 mg-codein e 60 mg tablet 03/08 completed Not Available Not Available Not Available mupirocin 2 % topical ointment 03/08 completed Not Available Not Available Not Available ergocalci ferol (vitamin D2) 1,250 mcg (50,000 unit) capsule TAKE ONE CAPSULE BY MOUTH EVERY WEEK active Not Available Not Available No t Available ibuprofen 600 mg tablet 02/06 completed Not Available Not Available Not Available losartan 100 mg tablet Take 1 tablet every day by oral route for 90 days. 08/09 completed Not Available Not Available Not Available fluticaso ne propionat e 50 mcg/actua tion nasal spray,stevie pension Leeper 2 {spray}s by nasal route. 03/08 completed Not Available Not Available Not Available lisinopri l 2.5 mg tablet Take 2.5 mg by oral route. 09/30 completed Not Available Not Available Not Available diazepam 5 mg tablet TAKE 1 TABLET BY MOUTH THREE TIMES DAILY NEEDED active Not Available Not Available No t Available azithromy florence 500 mg tablet Take 1 tablet every day by oral route for 3 days. 08/16 completed Not Available Not Available Not Available escitalop cuca 10 mg tablet TAKE 1 TABLET BY MOUTH EVERY DAY 2024 active Not Available Not Available Not Avai lable escitalop cuca 20 mg tablet Take 1 tablet every day by oral route. 11/18 completed Not Available Not Available Not Available escitalop cuca 5 mg tablet TAKE 1 TABLET BY MOUTH EVERY DAY active Not Available Not Available No t Available Stool Softener 02/06 [facility] Not Available Not Available Not Available black cohosh 1 PO QD 02/19 completed Not Available Not Available Not Available Prilosec OTC 1 PO QD 07/25 completed Not Available Not Available Not Available vit G90-LD-pl ridoxine- AA no.15 1 PO QD 02/19 completed Not Available Not Available Not Available Dexilant 60 mg capsule, delayed release Take 1 capsule every day by oral route for 90 days. 12/07 completed Not Available Not Available Not Available Vitals Date Recorded Body height Body mass index (BMI) Body weight Oxygen saturation Oxygen saturation in Arterial blood by Pulse oximetry Heart rate Body temperature Respiratory rate Systolic And Diastolic Systolic And Diastolic Provider Name and Address Organization Details Last Updated DateTime 5 165.1 cm 29.5 kg/m2 91066.5 5 g 99 % 99 % 72 /min 97.9 [degF] 16 /min 180/117 mm[Hg] 203/103 mm[Hg] Radha Poole MA [facility] 5 17:03:15 Date Recorded Body height Body mass index (BMI) Body weight Body temperature Respiratory rate Heart rate Oxygen saturation Oxygen saturation in Arterial blood by Pulse oximetry Systolic And Diastolic Provider Name and Address Organization Details Last Updated DateTime 5 165.1 cm 29.5 kg/m2 63729 g 98.4 [degF] 16 /min 76 /min 98 % 98 % 185/97 mm[Hg] Radha Poole MA [facility] 5 15:06:06 Date Recorded Body height Body mass index (BMI) Body weight Oxygen saturation Oxygen saturation in Arterial blood by Pulse oximetry Heart rate Respiratory rate Body temperature Systolic And Diastolic Provider Name and Address Organization Details Last Updated DateTime 5 165.1 cm 30 kg/m2 77382.6 3 g 100 % 100 % 79 /min 16 /min 97.6 [degF] 150/89 mm[Hg] Radha Poole MA [facility] 5 16:57:36 Date Recorded Body height Body mass index (BMI) Body weight Oxygen saturation Oxygen saturation in Arterial blood by Pulse oximetry Heart rate Respiratory rate Systolic And Diastolic Provider Name and Address Organization Details Last Updated DateTime 5 165.1 cm 29.3 kg/m2 08765.2 6 g 98 % 98 % 93 /min 16 /min 132/86 mm[Hg] Keely Sethi MA [facility] 5 16:02:50 Date Recorded Body height Body mass index (BMI) Body weight Oxygen saturation Oxygen saturation in Arterial blood by Pulse oximetry Heart rate Respiratory rate Body temperature Systolic And Diastolic Provider Name and Address Organization Details Last Updated DateTime 4 165.1 cm 26.8 kg/m2 85594.7 7 g 99 % 99 % 74 /min 20 /min 98.2 [degF] 155/93 mm[Hg] Radha Poole [place] [facility] 4 11:57:13 Social History Question Answer Notes LastModified by Organizat ion Details LastModified Time Tobacco Smoking Status Current Some Day Smoker Michelle Everett [facility] [place] [facility] 09/01/2020 11:42:36 Are You Blind Or Do You Have Difficulty Seeing? No Information not available 12/07/2020 Is Blood Transfusion Acceptable In An Emergency? Yes Information not available 11/11/2018 What Is Your Level Of Caffeine Consumption? None [email or web address] Information not available 01/19/2022 How Much Tobacco Do You Chew? None Information not available 11/11/2018 In The 14 Days Before Symptom Onset, Have You Had Close Contact With A Laboratory-confir med COVID-19 While That Case Was Ill? No Information not available 09/01/2020 In The 14 Days Before Symptom Onset, Have You Had Close Contact With A Person Who Is Under Investigation For COVID-19 While That Person Was Ill? No Information not available 09/01/2020 Have You Been To An Area Known To Be High Risk For COVID-19? No Information not available 09/01/2020 Are You Deaf Or Do You Have Serious Difficulty Hearing? No Information not available 12/07/2020 What Type Of Diet Are You Following? REGULAR Information not available 11/11/2018 Which Illicit Or Recreational Drugs Have You Used? Denies Information not available 11/11/2018 Education 12 Information no t available 11/11/2018 Are There Any Guns Present In Your Home? No Information not available 12/07/2020 Live Alone Or With Others? With Others Information not available 11/11/2018 What Was The Date Of Your Most Recent Tobacco Screening? 11/18/2024 Information not available 11/18/2024 How Many Children Do You Have? 3 Information not available 11/11/2018 Performs Monthly Self-breast Exam? No Information no t available 11/11/2018 Do You Use Protection During Sex? No Information not available 11/11/2018 What Is Your Relationship Status? Information not available 11/11/2018 Do You Use Your Seat Belt Or Car Seat Routinely? Yes Information not available 12/07/2020 Seat Belts Used Routinely Yes Information not available 11/11/2018 Are You Sexually Active? Yes Information not available 11/11/2018 Do You Have Smoke And Carbon Monoxide Detectors In Your Home? Yes Information not available 09/30/2020 At What Age Did You Start Smoking Tobacco? 14 Information not available 11/11/2018 Are You Passively Exposed To Smoke? Yes Information no t available 12/07/2020 How Much Tobacco Do You Smoke? 1 PPW [email or web address] Information not available 08/26/2024 General Stress Level High Information not available 11/11/2018 Do You Use Sunscreen Routinely? No Information not available 11/11/2018 Has Tobacco Cessation Counseling Been Provided? Yes [email or web address] Information not available 10/28/2018 On What Date Was Tobacco Cessation Counseling Provided? 11/18/2024 Information not available 11/18/2024 How Many Years Have You Smoked Tobacco? 34 Off And On Information not available 11/11/2018 Sex: Female Functional Status Question Answer Note LastModified by Organizat ion Details LastModified Time Do you use any illicit or recreational drugs? No Information not available 09/01/2020 Do you or have you ever used any other forms of tobacco or nicotine? No Information not available 09/30/2020 What is your level of alcohol consumption? Occasional Information not available 09/01/2020 Do you or have you ever used smokeless tobacco? Never used smokeless tobacco Information not available 03/12/2020 Are you currently employed? Yes Information not available 11/11/2018 Are you able to care for yourself independently? 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 Never used electronic cigarettes Information not available 03/12/2020 What is your exercise level? Moderate Information not available 11/11/2018 Mental Status Question Answer Note LastModified by Organization D etails LastModified Time Do you feel stressed (tense, restless, nervous, or anxious, or unable to sleep at night)? [email or web address] Information not available 09/20/2022 Family History Relationship Description Onset Age of this Age Resolved Age Notes LastModified by Organization Details LastModified Time Mother Diabetes mellitus [email or web address] Not available 15:47:08 Mother Alzheimer's disease crexfordma Not available 01/31 16:11:12 Father Diabetes mellitus [email or web address] Not available 15:47:08 Father History of depression deldredsmith Not available 15:47:08 Father History of hypertension deldredsmith Not available 02/23/2016 15:47:08 Sister Malignant neoplasm of liver eambrosema Not available 08/09 14:40:55 Sister Malignant tumor of cervix crexfordma Not available 01/31 16:11:03 Notes:Pt. sister had Medical History Condition Response Coronary Artery Disease N Other N Atrial Fibrillation N High Blood Pressure N Breast Cancer N Lung Disease N Depression N COPD N Blood Clots N Breast Problem Y Anesthesia Complications N Headaches/Migraines N Anxiety Disorder N Muscle, Joint, or Bone Problems N Infertility N Polyps Y Acid Reflux (GERD) Y Cancer N Stroke N Endometriosis N High Cholesterol N Liver Disease N Headaches N Thyroid Problems N Kidney or Bladder Problems N GI Problems N Acne N Eating Disorder N Skin Problems N Anemia N Heart Attack (NC) N Diabetes N Ovarian Cancer N Blood Transfusions N Seizures/Epilepsy N Abuse/Domestic Violence N Asthma N Allergies N Hepatitis N Heart Disease N Pre-Eclampsia N Heart Failure N Osteoporosis N Gynecological History Statement/Question Response Abnormal Pap N Date of Last Mammogram 05/23/2023 On BCP's at Conception? N STIs/STDs N Most Recent Mammogram Age at Menarche 14 Current Control Method Hysterectom y Age at First Child 18 Sexually Active? Y Menses Monthly N Date of Last Pap Smear 02/23/2018 Sexual Problems? N LMP Approximate Obstetrics History GPAL:G 3 P 3 0 0 3 Type Value Multiple Births 0 Full Term 3 Induced 0 Spontaneous 0 Premature 0 Living 3 Ectopics 0 Total 3 Immunizations Vaccine Type Date Status Note Provider Nam e and Address Organization Details Recorded Time Tdap 12/25/2020 completed SLOANE DIAZ MD Attn: [employer] [place], [address], [place] [facility] 10/18/2023 16:32:29 COVID-19, mRNA, LNP-S, PF, 30 mcg/0.3 mL dose 03/18/2021 completed Rosalind Beasley [place] null, [place] [facility] 03/18/2021 17:43:16 COVID-19, mRNA, LNP-S, PF, 30 mcg/0.3 mL dose 04/11/2021 completed Rosalind Beas[place], [place] [facility] 04/11/2021 17:06:25 Past Encounters Encounter ID Performer Location Encounter Start Date Encounter Closed Date Diagnosis/Indication Diagnosis SNOMED-CT Code Diagnosis ICD10 Code Diagnosis Note [id number] Paulino Montes MD [facility] [address] [place] [address] 12/15/2014 17:08:18 12/15/2014 17:56:13 Stomach cramps [id number] THIERRY Carroll-DUC [facility] [address] [place] [address] 02/23/2016 14:48:27 02/23/2016 15:50:35 Screening mammography 44905011 Z12.31 Gynecologi c examination 57089923 Z01.727 [id number] Jose Hernandez PA-C [facility] [address] [place] [address] 07/20/2016 10:21:41 07/20/2016 12:30:31 Pain in throat 777105936 R07.0 [id number] Jose Hernandez PA-C [facility] [address] [place] [address] 09/15/2016 10:57:51 09/15/2016 14:10:42 Acute maxillary sinusitis 41746275 J01.00 [id number] Helene Kieran [facility] [address] [place] [address] 10/04/2016 14:00:30 10/04/2016 17:05:09 Menopausal syndrome 734405921 N95.9 [id number] Helene Kieran [facility] [address] [place] [address] 07/25/2017 10:55:57 07/25/2017 15:45:56 Screening mammography 12716182 Z12.31 Menopausal syndrome 1237 78989 N95.9 Family his tory of cancer of colon 937866713 Z80.0 [id number] Paulino Montes MD [facility] [address] [place] [address] 08/07/2017 15:04:59 08/07/2017 16:32:09 Essential hypertension 63652075 I10 Gastroesop hageal reflux disease 905121611 K21.0 Blurring o f visual image 705443619 H53.8 [id number] Paulino Montes MD [facility] [address] [place] [address] 02/19/2018 11:12:08 02/19/2018 11:57:08 Ganglion of foot 353330037 M67.471 Feeling of lump in throat 577022382 R09.89 [id number] Jose Hernandez PA-C [facility] [address] [place] [address] 07/25/2018 12:09:13 07/25/2018 12:42:44 Polyp of larynx 25462080 J38.1 [id number] Jose Hernandez PA-C [facility] [address] [place] [address] 10/28/2018 11:43:32 10/28/2018 12:31:18 Abdominal mass 414612878 R19.00 [id number] Abhijit Beasley MD [place] [address] [facility] [address] [place] [address] 11/11/2018 11:51:34 11/12/2018 03:46:57 [id number] MD Dari Wyatt 14 OB [address] [facility] [place] [address] 11/11/2018 14:19:40 11/12/2018 08:30:14 Uterine leiomyoma 45957539 D25.9 CT scan shows a 9 cm uterine fibroid. Natural course of fibroids discussed. Pt. expressed understand ing and wants it gone. Benefits, risks, and alternativ es to total vaginal hysterecto my d/w pt. Pt. expressed understand ing. All pt. questions answered. Will schedule. [id number] MD Dari Wyatt 14 [address] [facility] [place] [address] 12/16/2018 13:45:53 12/17/2018 09:15:23 Elevated blood-pressure reading without diagnosis of hypertension 987958005 R03.0 Pt. with stroke-ran ge blood pressure, dwp. Pt. to ED for eval. Possible need to postpone surgery d/w pt. Uterine leiomyoma 498376 [address] scan shows a 9 cm uterine fibroid. Natural course of fibroids discussed. Pt. expressed understand ing and wants it gone. Benefits, risks, and alternativ es to total vaginal hysterecto my d/w pt. Pt. expressed understand ing. All pt. questions answered. PT scheduled 12/26/18. [id number] Jose Hernandez PA-C [facility] [address] [facility] [place] [address] 12/19/2018 10:54:53 12/20/2018 12:19:17 Generalized anxiety disorder 01352771 F41.1 Essential hypertension 02735393 I10 Uterine fibroid polyp 25 4835942 D25.0 Gastroesop hageal reflux disease 023089677 K21.0 [id number] Malena Nunn MD [facility] ([facility] [employer]) [address] [place] [address] 01/09/2019 09:21:58 01/10/2019 09:29:48 Postoperative visit 224328175 Z09 Pathology benign, dwp. Continue pelvic rest, no stooping, lifting, vacuuming, etc. Anticipati on of no working x 6 weeks discussed as pt's job requires heavy lifting. Note given. RTO 2 weeks for vaginal cuff exam and possible release to sexual activity, dwp. [id number] MD Terrell Wyatt ([employer]) [address] [place] [address] 01/23/2019 10:34:31 01/24/2019 10:49:06 Postoperative visit 856670665 Z09 Pt released to all activities . Pt. instructed to take it slow with inter course. If it's hurting, do not do it. Cuff is still healing. RTO 2 weeks for re-eval. [id number] MD Terrell Wyatt ([employer]) [address] [place] [address] 02/06/2019 11:01:46 02/07/2019 09:56:36 Postoperative visit 115449464 Z09 Silver nitrate applied to granulatio n tissue. Pt. reassured. RTO one year for AE. [id number] Jose Hernandez PA-C [facility] [address] [place] [address] 03/26/2019 10:26:55 03/26/2019 13:52:55 Abdominal pain 37602877 R10.13 Essential hypertension 66578778 I10 [id number] [facility] [address] [place] [address] 03/12/2020 09:30:05 03/18/2020 07:24:58 Gastroesophageal reflux disease without esophagitis 586270806 K21.9 Polyp of v ocal cord or larynx 218949664 J38.1 [id number] [facility] [address] [place] [address] 04/15/2020 09:33:58 04/15/2020 15:39:46 Uterine fibroid polyp 919770824 D25.0 Essential hypertension 26939508 I10 Generalize d anxiety disorder 99274875 F41.1 [id number] MD Slava Delarosa [facility] [address] [place] [address] 09/01/2020 09:51:33 09/01/2020 14:13:54 Chronic right maxillary sinusitis 6957522035 0791087 J32.0 Essential hypertension 29823853 I10 [id number] Paulino Montes MD [facility] [address] [place] [address] 09/30/2020 09:34:22 09/30/2020 17:37:20 Esophageal dysphagia 65646845 R13.19 [id number] Paulino Montes MD [facility] [address] [place] [address] 12/07/2020 11:38:27 12/07/2020 13:23:42 Essential hypertension 46659981 I10 Angina pectoris 67832811 0 I20.9 [id number] Paulino Montes MD [facility] [address] [place] [address] 03/08/2021 16:44:48 03/09/2021 10:15:20 Paroxysmal atrial fibrillation 170940834 I48.0 Flushes/goes red 3799973 07 R23.2 [id number] Jose Hernandez PA-C [facility] [address] [place] [address] 03/18/2021 16:57:17 03/18/2021 17:31:02 Administration of SARS-CoV-2 antigen vaccine 743685765 Z23 [id number] Jose Hernandez PA-C [facility] [address] [place] [address] 04/11/2021 16:44:27 04/12/2021 14:35:20 Administration of SARS-CoV-2 mRNA vaccine 8424171424 Z23 [id number] Jose Hernandez PA-C [facility] [address] [place] [address] 05/04/2021 14:45:16 05/04/2021 15:12:34 Chronic anxiety 066040329 F41.1 Generalize d anxiety disorder 22312831 F41.1 [id number] Jose Hernandez PA-C [facility] [address] [place] [address] 05/18/2021 11:41:10 05/23/2021 10:19:54 Chronic anxiety 833413857 F41.1 Gastroesop hageal reflux disease 982701209 K21.9 Essential hypertension 83657139 I10 recheck labs in 3 months [id number] Paulino Montes MD [facility] [address] [place] [address] 09/19/2021 11:01:59 09/19/2021 12:00:40 Idiopathic peripheral neuropathy 68947430 G60.3 Hyperglycemia 02355935 R 73.03 [id number] Jose Hernandez PA-C [facility] [address] [place] [address] 10/21/2021 15:58:10 10/21/2021 16:50:07 Pain of left ankle joint 5223638345 9243948 M25.122 [id number] Jose Hernandez PA-C [facility] [address] [place] [address] 01/19/2022 11:40:20 01/19/2022 12:37:57 Generalized anxiety disorder 56749159 F41.1 [id number] Jose Hernandez PA-C [facility] [address] [place] [address] 04/04/2022 18:08:25 04/05/2022 09:17:21 Essential hypertension 79483366 I10 recheck labs in 3 months History of polyp of colon 833427646 Z86.426 [id number] Jose Hernandez PA-C [facility] [address] [place] [address] 06/22/2022 15:05:39 06/22/2022 16:40:03 Cervical lymphadenopathy 017240164 R59.0 Cervical radiculopathy 39326473 M54.12 Lumbar radiculopathy 128 666239 M54.16 Idiopathic peripheral neuropathy 66340721 G60.3 [id number] Jose Hernandez PA-C [facility] [address] [place] [address] 08/04/2022 15:43:26 08/10/2022 12:16:47 Dysuria 09737616 R30.0 Mixed anxi ety and depressive disorder 732889094 F41.8 Essential hypertension 25755904 I10 recheck labs in 3 months Overweight 537202115 E66 .3 Labile blood pressure 25 4827002 R09.89 [id number] MD Terrell HARDIN ([employer]) [address] [place] [address] 08/09/2022 14:27:11 08/15/2022 11:57:29 History of polyp of colon 842059926 Z86.010 - Has appointmen t with GI on 09/18/2022 Screening for malignant neoplasm of breast 701545432 Z12.31 - Due for mammo in March; ordered today Body mass index 25-29 - overweight 076910848 Z68.26 - Discussed healthy behaviors, including eating a balanced diet and incorporat ing regular physical activity into day Screening for malignant neoplasm of respiratory tract 123595938 Z12.2 F17.210 - Current smoker with 20+ pack-years - Does meet criteria for annual low-dose CT chest; ordered todya Generalize d anxiety disorder 66590984 F41.1 - Advised patient of dependence potentiona l with benzo use- Recommende d therapy and SSRI; patient declined at this time- Provided handout on anxiety and recommende d trying the [employer] june to help with relaxation techniques at home- Follow up with PCP for further management [id number] OMAYRA Bloom [facility] [address] [place] [address] 09/20/2022 10:28:34 09/25/2022 08:32:35 Axillary lymphadenopathy 956795064 R59.0 Overweight 739258051 E66 .3 [id number] MD Slava Delarosa [facility] [address] [place] [address] 02/08/2023 15:39:45 02/09/2023 11:36:22 Long-term drug therapy 097662005 Z79.899 Essential hypertension 15732102 I10 recheck labs in 3 months Mixed anxi ety and depressive disorder 078996965 F41.8 [id number] OMAYRA Bloom [facility] [address] [place] [address] 03/16/2023 15:24:46 03/21/2023 14:30:23 Seborrheic keratosis 909339134 L82.1 Overweight 899586483 E66 .3 [id number] Jose Hernandez PA-C [facility] [address] [place] [address] 05/14/2023 15:44:24 05/15/2023 09:12:02 Viral syndrome 732580775 B34.9 COVID-19 819265351 U07.1 [id number] Jose Hernandez PA-C [facility] [address] [place] [address] 08/17/2023 14:42:02 08/20/2023 16:35:39 Chronic anxiety 941653562 F41.1 Essential hypertension 01987114 I10 recheck labs in 3 months Generalize d anxiety disorder 49289804 F41.1 [id number] Jose Hernandez PA-C [facility] [address] [place] [address] 08/21/2023 09:38:18 08/25/2023 11:34:16 Pain of left ankle joint 6213306304 2491160 M25.152 [id number] [facility] [address] [place] [address] 10/18/2023 13:56:38 10/19/2023 11:24:37 Adult health examination 185782230 Z00.00 - Reviewed risks for cardiovasc ular disease, infection, and cancer; ordered screening tests as appropriat e- Recommende d annual flu vaccine and updated 2022 COVID vaccine Dyslipidemia 805939721 E 78.5 - f/u lipid panel; will treat as indicated by results and calculated 10-year ASCVD risk estimate Generalize d anxiety disorder 09741540 F41.1 - Recommende d therapy and SSRI; patient interested in medication s so will trial escitalopr am 5 mg daily x7d, then increase to 10 mg daily- RTC in 2 weeks for re-evaluat ion of symptoms Body mass index 25-29 - overweight 539010715 Z68.26 - f/u A1c to evaluate for diabetes- Advised continued high fiber diet Essential hypertension 91124809 I10 - BPs 130s/80s at home- States elevated BP due to white coat HTN and anxiety- Advised patient on signs/symp toms of HTN emergency- Continue management per cardiology Screening for malignant neoplasm of breast 608636085 Z12.31 - Due for mammo in May; ordered today Screening for malignant neoplasm of respiratory tract 222408955 Z12.2 Z87.891 F17.210 - Current smoker with 20+ pack-years - 0.3 cm RUL nodule seen on LDCT 08/2022; repeat LDCT ordered per radiologis t recommenda tions Dysphagia 20499378 R13.1 0 - Difficulty swallowing liquids and solids- Recommende d following up with GI physician- f/u barium swallow to evaluate for mass vs stricture vs achalasia Vitamin D deficiency 347 90572 E55.9 - Reports history of needing high-dose vitamin D supplement ation- f/u vitamin D; will treat as indicated by results Positive s creening for depression on PHQ-9 (Patient Health Questionnaire 9) 8009901525 58060 Z13.31 - f/u TSH- Management as above for anxiety with new Rx for escitalopr am [id number] MD [facility] ([facility]) [address] [place] [address] 11/01/2023 15:22:37 11/03/2023 18:20:24 Generalized anxiety disorder 89403103 F41.1 - 10/18/23: Recommende d therapy and SSRI. Prescribed Lexapro.- 11/01/23: Good response to Lexapro thus far. Continue 10 mg dose daily. RTC PRN if interested in therapy or if symptoms not controlled . Prediabetes 520346001 R7 3.03 - 10/18/23: A1c 5.8%- Continue dietary changes. Will recheck A1c in 3-6 months. Essential hypertension 58338484 I10 - 10/18/23: BP 171/96 during visit but reports BPs 130s/80s at home. States elevated BP due to white coat HTN and anxiety. Advised patient on signs/symp toms of HTN emergency. Continue management per cardiology .- 11/01/23: BP improved. Dyslipidemia 226334393 E 78.5 - 10/18/23: Tchol 200, HDL 52, LDL 113.- 11/01/23: Reviewed CTA coronaries - coronary calcium score 0. Continue dietary changes to decrease LDL. [id number] MD China HRADINhalto ([employer]) [address] [place] [address] 12/27/2023 14:02:31 01/09/2024 14:53:04 Injury of right knee 3453955601 2371416 S89.91XD - Provided work note- Continue ice, heat, OTC analgesics as tolerated- If home exercises and conservati ve management do not improve symptoms over next 2 weeks, recommend PT for further evaluation and treatment [id number] MD Terrell HARDIN ([employer]) [address] [place] [address] 02/01/2024 15:46:50 02/15/2024 11:59:09 Dyslipidemia 403937363 E78.5 - 10/18/23: Tchol 200, HDL 52, LDL 113.- 11/01/23: Reviewed CTA coronaries - coronary calcium score 0. Continue dietary changes to decrease LDL.- 02/01/24: f/u repeat lipid panel Prediabetes 933194440 R7 3.03 - 10/18/23: A1c 5.8%- 11/01/23: repeat A1c Essential hypertension 88482142 I10 - 10/18/23: BP 171/96 during visit but reports BPs 130s/80s at home. States elevated BP due to white coat HTN and anxiety. Advised patient on signs/symp toms of HTN emergency. Continue management per cardiology .- 11/01/23: BP improved.- 02/01/24: High BP on evaluation without symptoms of end-organ damage and normal neuro exam. F/u BMP to evaluate kidney function. Provided handout on signs/symp toms of HTN emergency and when to seek ED care. Recommend home BP monitoring . RTC in 1 week for BP recheck. Polyarthropathy 59821827 M13.0 - Diffuse pain with some small joint stiffness in the morning- f/u ESR, CRP, RF, anti-CCP- Provided work note. RTC in 1 week to re-evaluat e symptoms. [id number] MD Terrell HARDIN ([employer]) [address] [place] [address] 02/08/2024 11:05:58 02/15/2024 12:28:57 Essential hypertension 24076204 I10 - 10/18/23: BP 171/96 during visit but reports BPs 130s/80s at home. States elevated BP due to white coat HTN and anxiety. Advised patient on signs/symp toms of HTN emergency. Continue management per cardiology .- 11/01/23: BP improved.- 02/01/24: High BP on evaluation without symptoms of end-organ damage and normal neuro exam. F/u BMP to evaluate kidney function. Provided handout on signs/symp toms of HTN emergency and when to seek ED care. Recommend home BP monitoring . RTC in 1 week for BP recheck.- 02/08/24: States BP this morning at home was 135/87. Follows with cardiology ; set up appointmen t for the end of February. Advised low salt diet and provided relevant handout. Dyslipidemia 818445996 E 78.2 - 10/18/23: Tchol 200, HDL 52, LDL 113.- 11/01/23: Reviewed CTA coronaries - coronary calcium score 0. Continue dietary changes to decrease LDL.- 02/04/24: Tchol 245, HDL 53, LDL 163, fasting triglyceri wade 159. ASCVD risk estimate in intermedia te range.- 02/08/24: Advised dietary changes and provided handout on fats and heart health. Patient set up appointmen t with cardiology office for end of February. Generalize d anxiety disorder 32875704 F41.1 - Inadequate response to escitalopr am 10 mg daily with worsening anxiety. Increased dose to 20 mg daily.- Offered referral to counseling ; patient declined at this time. Chronic low back pain 27 8695443 M54.50 - Recommende d NSAIDs PRN- Referred to physical therapy for further evaluation and treatment- Given home exercises for upper and lower back pain- Provided work release note [id number] MD Terrell HARDIN ([employer]) [address] [place] [address] 08/26/2024 15:37:04 09/02/2024 15:50:02 Hematochezia 701783519 K92.1 R19.5 - DDx for BRBPR includes diverticul ar bleed vs hemorrhoid al bleed vs colonic mass (less likely with recent colonoscop y without polyps)- DDx for loose/wate ry and oily stools includes IBS vs IBD (UC vs Crohn's) vs celiac disease vs fat malabsorpt javier conditions - f/u labs and refer to GI for further evaluation and treatment Injury of right leg 1186 916141 2979300 S89.91XA - Recovering from recent right fibular fracture with new injury to right foot- f/u XR ankle to evaluate for new vs worsened fracture Essential hypertension 14010268 I10 - Follows with cardiology . Chronic, not at goal with metoprolol succinate ER 50 mg daily.- High BP with mild headache that she has not taken pain medicines for and normal neuro exam except known tinnitus and tremor that patient pointed out as not being new. Advised patient of concern for significan tly elevated BPs and that if headaches did not respond to Tylenol, she should seek ER evaluation . F/u CMP as above to evaluate kidney function.- RTC in 1 week for BP check Positive s creening for depression on PHQ-9 (Patient Health Questionnaire 9) 1626962109 46423 Z13.31 - On escitalopr am [id number] SLOANE DIAZ MD [facility] ([facility]) [address] [place] [address] 09/05/2024 14:42:15 09/08/2024 10:59:03 Injury of right leg 1496424931 7988451 S89.91XA - Recovering from recent right fibular fracture with new injury to right foot- XR ankle on 08/28/2024 showed possible abnormalit y at base of 5th metatarsal and recommende d dedicated foot x-rays if correlates with tenderness to palpation on exam. Foot exam today is concerning for possible injury to the base of the 5th metatarsal ; XRs ordered- Next visit scheduled for 09/12/2024 . Provided work note to excuse patient from work duties until upcoming visit. Will determine next steps based on XR result Essential hypertension 88693167 I10 - Follows with cardiology . Chronic, not at goal with metoprolol succinate ER 50 mg daily.- 09/05/2024: BP still not at goal. Patient visibly anxious at time of visit. Recent labs did not show any kidney injury. Patient to follow up with cardiologi st at visit next week. Patient has been extensivel y counseled on signs and symptoms of hypertensi ve emergency. Depression screening 171 694242 Z13.31 - Negative PHQ-9 [id number] [facility] [address] [place] [address] 09/12/2024 16:15:48 10/08/2024 15:40:04 Injury of right leg 0047456750 4605683 S89.91XA - Recovering from recent right fibular fracture with new injury to right foot- 09/05/24: XR ankle on 08/28/2024 showed possible abnormalit y at base of 5th metatarsal and recommende d dedicated foot x-rays if correlates with tenderness to palpation on exam. Foot exam today is concerning for possible injury to the base of the 5th metatarsal ; XRs ordered- 09/12/24: Patient declined to complete XR foot due to not having 5th metatarsal pain. Feels that her anterior foot pain is manageable enough that she can resume her work duties. Work note provided. Essential hypertension 04681153 I10 - Follows with cardiology . Chronic, not at goal with metoprolol succinate ER 50 mg daily.- 09/05/24: BP still not at goal. Patient visibly anxious at time of visit. Recent labs did not show any kidney injury. Patient to follow up with cardiologi st at visit next week. Patient has been extensivel y counseled on signs and symptoms of hypertensi ve emergency. - 09/12/24: BP improved but not at goal. Management per cardiology . [id number] Paulino Montes MD [facility] [address] [facility] [place] [address] 11/18/2024 15:57:14 11/20/2024 16:49:08 Mixed anxiety and depressive disorder 687591073 F41.8 Overweight in adulthood with body mass index of 25 or more but less than 30 165709469 E66.3 Z68.29 Overweight 663519204 E66 .3 Generalize d anxiety disorder 18343672 F41.1 Health Concerns Section Related Observation LastModified by Organization Detai ls LastModified Time None Recorded Concern Status LastModified by Organization Details LastModified Time None Recorded Advance Directives Directive None Recorded Payers Insurance Date Sequence Insurance Name Policy Number Policy [place]o Covered Member ID Del Toro Member ID Guarantor Name 07/04/2020 PAYMENT PLAN Clarice Stafford 12/03/2020 1 [employer] [id number] Bret Stafford [id number] Clarice Stafford 06/22/2022 1 [employer] (POS) [id number] Bret Stafford [id number] Clarice Stafford 08/27/2023 COMPREHENSIVE RISK [employer] Clarice Stafford 11/29/2024 1 [employer] [id number] Clarice Stafford [id number] Clarice Stafford 08/26/2024 2 *SELF PAY* Ho walter Stafford 08[birth year]20[birth year]24 1 [place] [id number] Bret Stafford [id number] Clarice Stafford OBGyn Episode Ob Episode Information Episode Created Date Number of Fetuses Patient Bloodtype Patient rh Status Prepregnancy Weight lbs Domestic Partner Domestic Partner Phone Father Name 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 Status 11/12/19 19 1 CLOSED Fetus Data First Name Last Name Admitted to NICU Weight (g) Sex Living Outcome Pediatric Complications Fetus ID Race Codes Race Delivery Type F Full Term [id number] Vaginal Mario Calculation Initial Mario Date Initial Exam Date Initial Exam Provider Initial Ultrasound Date Last Menstrual Period Date Ultra Sound Weeks Gestation 0 Eighteen To Twenty Week Mario Update Ultra Sound Date Fundal Height At Umbil Quickening Date Ultra Sound Latest Weeks Gestation Final Mario Confirmed By Final Mario Confirmed Date Final Mario Date Ultra Sound Latest Days Gestation 0 0 Menstrual History Last Menstrual Date Menses Monthly On Bcp Conception Prior Menses Frequency Hcg Plus Date Menarche Onset Age Delivery Information Delivery Date Delivery Type Labor Anesthesia Weeks Gestation Incision Type Labor Labor Length Hrs Delivered By Post Complications Tubal Sterilization Discharge Date Comments 9 Discharge Information Feeding Method Contraceptive Method Maternal HG B and HCT Levels Ob Episode Information Episode Created Date Number of Fetuses Patient Bloodtype Patient rh Status Prepregnancy Weight lbs Domestic Partner Domestic Partner Phone Father Name 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 Status 11/12/19 19 1 CLOSED Fetus Data First Name Last Name Admitted to NICU Weight (g) Sex Living Outcome Pediatric Complications Fetus ID Race Codes Race Delivery Type M Full Term [id number] Vaginal Mario Calculation Initial Mario Date Initial Exam Date Initial Exam Provider Initial Ultrasound Date Last Menstrual Period Date Ultra Sound Weeks Gestation 0 Eighteen To Twenty Week Mario Update Ultra Sound Date Fundal Height At Umbil Quickening Date Ultra Sound Latest Weeks Gestation Final Mario Confirmed By Final Mario Confirmed Date Final Mario Date Ultra Sound Latest Days Gestation 0 0 Menstrual History Last Menstrual Date Menses Monthly On Bcp Conception Prior Menses Frequency Hcg Plus Date Menarche Onset Age Delivery Information Delivery Date Delivery Type Labor Anesthesia Weeks Gestation Incision Type Labor Labor Length Hrs Delivered By Post Complications Tubal Sterilization Discharge Date Comments 3 Discharge Information Feeding Method Contraceptive Method Maternal HG B and HCT Levels Ob Episode Information Episode Created Date Number of Fetuses Patient Bloodtype Patient rh Status Prepregnancy Weight lbs Domestic Partner Domestic Partner Phone Father Name 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 Status 11/12/19 19 1 CLOSED Fetus Data First Name Last Name Admitted to NICU Weight (g) Sex Living Outcome Pediatric Complications Fetus ID Race Codes Race Delivery Type F Full Term [id number] Vaginal Mario Calculation Initial Mario Date Initial Exam Date Initial Exam Provider Initial Ultrasound Date Last Menstrual Period Date Ultra Sound Weeks Gestation 0 Eighteen To Twenty Week Mario Update Ultra Sound Date Fundal Height At Umbil Quickening Date Ultra Sound Latest Weeks Gestation Final Mario Confirmed By Final Mario Confirmed Date Final Mario Date Ultra Sound Latest Days Gestation 0 0 Menstrual History Last Menstrual Date Menses Monthly On Bcp Conception Prior Menses Frequency Hcg Plus Date Menarche Onset Age Delivery Information Delivery Date Delivery Type Labor Anesthesia Weeks Gestation Incision Type Labor Labor Length Hrs Delivered By Post Complications Tubal Sterilization Discharge Date Comments 5 Discharge Information Feeding Method Contraceptive Method Maternal HG B and HCT Levels
--- OUTSIDE RECORDS SUMMARY | 2025-01-05 18:09 | XMS_ITS | Clinical Summary ---
Author Organization [facility] Address formerly [facility] [place] [address] Care Team Providers Care Health Diagnostics Teacher Name Role Phone Unavailable Primary Care Provider Unavailabl e Allergies No known active allergies Medications diazePAM 2 MG tablet 10/15/2019 Active Social History Tobacco Use Types Packs/Day Years Used Date Smoking Tobacco: Every Day Cigarettes Smokeless Tobacco: Never Alcohol Use Standard Drinks/Week Comments Not Asked 3.3 (1 standard drink = 0.6 oz p ure alcohol) couple of beers a week Comments No Sex and Gender Information Value Date Recorded Sex Assigned at Not on file Legal Sex Female 4:42 PM CDT Gender Identity Not on file Sexual Orientation Not on file Last Filed Vital Signs Vital Sign Reading Time Taken Comments Blood Pressure 151/72 11/08/2019 10:44 AM CDT Pulse 80 11/08/2019 10:44 AM CDT Temperature 36.2 C (97.2 F) 11/08/2019 8:32 AM CDT Respiratory Rate 18 11/08/2019 10:44 AM CDT Oxygen Saturation 100% 11/08/2019 10:44 AM CDT Inhaled Oxygen Concentration - - Weight 68 kg (150 lb) 11/08/2019 8:32 AM CDT Height 165.1 cm (5' 5) 11/08/2019 8:32 AM CDT Body Mass Index 24.96 11/08/2019 8:32 AM CDT Plan of Treatment Health Maintenance Due Date Last Done Comments Colorectal Cancer Screening Colonoscopy (10 Years) 1969 Annual Physical 1972 Hepatitis C 1987 DTaP, Tdap and Td Vaccines ( 1 - Tdap) 1988 Hepatitis B Vaccines (1 of 3 - 19+ 3-dose series) 1988 Pneumococcal Vaccine: 50+ Ye ars (1 of 2 - PCV) 1988 Mammogram Screening 2009 Zoster Vaccines (1 of 2) 2019 COVID-19 Vaccine (1 - 2023-2 5 season) 2024 Meningococcal B Vaccine Aged Out No l onger eligible based on patient's age to complete this topic Meningococcal Vaccine Aged Out No delma ta eligible based on patient's age to complete this topic RSV Immunizations Under 20 Months Aged Out No longer eligible based on patient's age to complete this topic Insurance [facility]
--- OUTSIDE RECORDS SUMMARY | 2025-01-05 18:09 | XMS_ITS | Clinical Summary ---
Author Organization [facility] Address [address] [address] Phone Care Team Providers Care Epic Director Name Role Phone Jose Hernandez Primary Care Provider [phone] Allergies No known active allergies Medications omeprazole (PRILOSEC) 10 MG CAPSULE DELAYED RELEASE Take by mouth. 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 Gender Identity Not on file Sexual Orientation Not on file Last Filed Vital Signs Vital Sign Reading Time Taken Comments Blood Pressure 128/68 03/20/2018 10:53 AM CDT Pulse 80 03/20/2018 10:53 AM CDT Temperature 36.9 C (98.4 F) 03/20/2018 10:53 AM CDT Respiratory Rate 18 03/20/2018 10:53 AM CDT Oxygen Saturation 98% 03/20/2018 10:53 AM CDT Inhaled Oxygen Concentration - - Weight 70.8 kg (156 lb) 03/20/2018 10:53 AM CDT Height 165.1 cm (5' 5) 03/20/2018 10:53 AM CDT Body Mass Index 25.96 03/20/2018 10:53 AM CDT Plan of Treatment Health Maintenance Due Date Last Done Comments Hepatitis C Virus (HCV) Screening 1969 TdaP Immunization 1969 Hepatitis B Immunization (1 of 3 - 19+ 3-dose series) 1988 Pap Smear 1990 Cervical Cancer Screening (CCS) 1999 HPV/Cotest 1999 Cologuard 2014 Colonoscopy 2014 Colorectal Cancer Screening 2014 Immunochemical Fecal Occult Blood 2014 Pneumococcal Immunization (5 0+ years) (1 of 1 - PCV) 2019 Zoster Immunization (1 of 2) 2019 SARS-COV-2 Immunization (3 - 2023- season) 2024 04/11/2021, 03/18/2021 Influenza Immunization (#1) 2025 Respiratory Syncytial Virus (RSV) Immunization (Adult) (1 - 1-dose 75+ series) 2044 Human Papillomavirus (HPV) Immunization Aged Out No longer eligible b ased on patient's age to complete this topic Meningococcal Immunization (ACWY) Aged Out No longer eligible b ased on patient's age to complete this topic Rotavirus Immunization Aged Out No lo nger eligible based on patient's age to complete this topic Insurance Care Teams Epic Director Relationship Specialty Start Date End Date Jose Hernandez PAC [address] [place] [address] PCP - General Physician Prepared Foods Team Leader 07/27/16
--- OUTSIDE RECORDS SUMMARY | 2025-01-05 18:09 | XMS_ITS | Patient Health Record ---
Author Organization [facility] Address [address] [facility] [address] [place] [address] Care Team Providers Care Stamping Die Maker Bench Name Role Phone BarbisundayShanonLois Unavailable [phone] Reason For Referral No Information Plan Of Treatment No Information Insurance Providers Payer Name Payer Address Payer Phone Subscriber Number Group Number Insured Name Patient Relationship to Insured Coverage Start Date Coverage End Date [facility] [address] [place] [address] [id number] CONKLIN Spouse - patient is the spouse of the insured
--- OUTSIDE RECORDS SUMMARY | 2025-01-05 18:09 | XMS_ITS | Clinical Summary ---
Author Organization [facility] Address [address] [place] [address] Phone Care Team Providers Care Log Yard Derrick Operator Name Role Phone Unavailable Primary Care Provider Unavailabl e Social History Tobacco Use Types Packs/Day Years Used Date Smoking Tobacco: Never Assessed Comments Unknown Sex and Gender Information Value Date Recorded Sex Assigned at Not on file Legal Sex Female 10:45 AM CDT Gender Identity Not on file Sexual Orientation Not on file Last Filed Vital Signs Vital Sign Reading Time Taken Comments Blood Pressure 149/83 12/03/2020 1:00 PM CDT Pulse 74 12/03/2020 1:00 PM CDT Temperature 36.7 C (98.1 F) 12/03/2020 10:47 AM CDT Respiratory Rate 20 12/03/2020 1:00 PM CDT Oxygen Saturation - - Inhaled Oxygen Concentration - - Weight - - Height - - Body Mass Index - - Plan of Treatment Health Maintenance Due Date Last Done Comments DTAP/TDAP/TD VACCINES (1 - Tdap) 1988 HEPATITIS B VACCINES (1 of 3 - 19+ 3-dose series) 06/1988 HPV/Cotest (21-29) 1990 CERVICAL CANCER SCREENING 1999 HPV/Cotest (30-65) 1999 PAP SMEAR 1999 BREAST CANCER SCREENING 2009 COLORECTAL SCREENING 2014 Colorectal Cancer Screening 2014 FIT-DNA Q 3 years 2014 FIT/FOBT Q 1 year 2014 Flex Sig/CT Colonography Q 5 years 2014 ZOSTER VACCINE (1 of 2) 2019 INFLUENZA VACCINE (#1) 2025
--- NOTE | 2025-01-05 18:21 | ED.GENADULT ---
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 Pt said she has been drinking water and propel all day but has not urinated. Pt thinsk she's overheated but now is having tingling to her fingertips. Pt also has history of anxiety. Related Data Home Medications ?Medication ?Instructions ?Recorded ?Confirmed ?Last Taken ?Type escitalopram oxalate 10 mg tablet 10 mg PO DAILY 12/23/23 08/15/24 Unknown History metoprolol succinate 50 mg 50 mg PO DAILY 12/23/23 08/15/24 Unknown History tablet,extended release 24 hr aspirin 81 mg tablet,delayed 81 mg PO DAILY 07/04/24 08/15/24 Unknown History release Allergies Allergy/AdvReac Type Severity Reaction Status Date / Time lisinopril AdvReac Unknown Verified 01/05/25 18:25 Review of Systems Review of Systems: All systems reviewed & are unremarkable except as noted in HPI and below PMFSH Family History Family History Sibling Family history of gynecological problem Family history of malignant neoplasm of ovary Grandparent Carcinoma of colon Family history of throat cancer Other Family history of malignant neoplasm Social History Social History Smoking status: Light tobacco smoker Alcohol intake: current Alcohol use details: rare Substance use: never Do You Feel Safe in your Home?: Yes Lack of Transportation: No Lack of Food: Never True Current Housing: I Have Housing Concerned About Future Housing: No Difficulty Paying Gas/Electric Bills: No Difficulty Paying for Meds: No Currently Unemployed: No Education: High School Diploma/GED Difficulty w/ Childcare or Family Care: No Exam Const: General: cooperative, comfortable and no acute distress Nutritional Appearance: well nourished Orientation/consciousness: patient oriented x3 Limitations: no limitations HENMT: Head: normal to inspection Neck: Neck: normal visual inspection, full ROM, no lymphadenopathy and no meningeal signs Resp: Effort & Inspection: normal respiratory effort and tachypneic Auscultation: clear to auscultation bilaterally Cardio: Rate: regular rate Rhythm: regular rhythm GI: Inspection: normal to inspection GI Palp: No abdominal tenderness and Yes Soft to palpation Auscultation: normoactive bowel sounds Back/Spine/Pelvis: Back: no CVA tenderness Skin: General skin exam: normal color and no rashes or lesions noted Lesions: no lesions Trauma: no lacerations or abrasions Neuro: General: patient oriented x3, no focal motor deficits and CN's II-XI intact bilaterally Cognition (Neuro): normal cognition Speech: normal speech Motor exam (neuro): 5/5 motor strength present throughout Sensory Exam: normal sensation Extrem: General: normal to inspection and full ROM Psych: Appearance: grossly normal Mental Status: mental status grossly normal Speech and movement: Clear speech present Affect: Anxious affect present Attitude: cooperative Thought process: Normal thought process present Thought content: Yes Normal thought content present Course Vital Signs Vital signs: Vital Signs Temperature 98.1 F 01/05/25 18:04 Pulse Rate 84 01/05/25 18:04 Respiratory Rate 20 01/05/25 18:04 Blood Pressure 184/105 H 01/05/25 18:04 Pulse Oximetry 99 01/05/25 18:04 Oxygen Delivery Room Air 01/05/25 18:04 Temperature 98.1 F 01/05/25 18:04 Pulse Rate 84 01/05/25 18:04 Respiratory Rate 20 01/05/25 18:04 Blood Pressure 184/105 H 01/05/25 18:04 Pulse Oximetry 99 01/05/25 18:04 Oxygen Delivery Room Air 01/05/25 18:04 Medical Decision Making MDM Narrative Medical decision making narrative: Pt felt lightheaded after working in heat this afternoon. pt also very anxious and hyperventilating. will give some fluids and check electrolytes and renal function and cpk torule out rhabdomyolysis,and give a little ativan for nerves. labs look ok other than k of 3.2. will give 40 meq po. cpk and cbc nl. Vital Signs Vital Signs: Vital Signs Temperature 98.1 F 01/05/25 18:04 Pulse Rate 84 01/05/25 18:04 Respiratory Rate 20 01/05/25 18:04 Blood Pressure 184/105 H 01/05/25 18:04 Pulse Oximetry 99 01/05/25 18:04 Oxygen Delivery Room Air 01/05/25 18:04 Temperature 98.1 F 01/05/25 18:04 Pulse Rate 84 01/05/25 18:04 Respiratory Rate 20 01/05/25 18:04 Blood Pressure 184/105 H 01/05/25 18:04 Pulse Oximetry 99 01/05/25 18:04 Oxygen Delivery Room Air 01/05/25 18:04 Lab Data 01/05/25 18:20 01/05/25 18:20 Labs: Lab Results 01/05/25 Range/Units 18:20 WBC 7.8 (4.8-10.8) K/mm3 RBC 4.21 (4.20-5.40) M/mm3 Hgb 13.2 (12.0-15.0) g/dL Hct 39.0 (35.0-49.0) % MCV 92.6 (78.0-102.0) fL MCH 31.4 H (27.0-31.0) pg MCHC 33.8 (32-36) g/dL RDW 11.7 (11.6-14.4) % Plt Count 245 (150-420) K/mm3 MPV 9.0 L (9.2-11.8) fl Immature Gran % (Auto) 0.3 H (0.0-0.0) % Neut % (Auto) 56.5 (50.0-70.0) % Lymph % (Auto) 32.7 (18.0-42.0) % Sutton % (Auto) 9.7 (2.0-11.0) % Eos % (Auto) 0.5 L (1.0-6.0) % Baso % (Auto) 0.3 (0.0-1.0) % Lymph # (Auto) 2.56 (1.10-4.50) K/mm3 Sutton # (Auto) 0.76 (0.10-0.90) K/mm3 Eos # (Auto) 0.04 (0.02-0.50) K/mm3 Baso # (Auto) 0.02 (0.00-0.10) K/mm3 Abs Immat Gran (auto) 0.02 H (0.00-0.00) K/mm3 Absolute Neuts (auto) 4.42 (1.70-7.20) K/mm3 Absolute Nucleated RBC 0.00 (0.00-0.00) K/mm3 Nucleated RBC % 0.0 (0-0.0) % Sodium 135 L (137-145) mmol/L Potassium 3.2 L (3.4-5.0) mmol/L Chloride 103 (98-107) mmol/L Carbon Dioxide 25 (22-30) mmol/L Anion Gap 7 (4-12) mmol/L BUN 14 (7-17) mg/dL Creatinine 0.73 (0.7-1.0) mg/dL Estim Creat Clear Calc 77 ml/min Estimated GFR > 60 (59 - ) Glucose 112 H (65-110) mg/dL Calculated Osmolality 281 L (285-295) mOsm/kg Calcium 9.1 (8.4-10.2) mg/dL Total Bilirubin 0.7 (0.2-1.3) mg/dL AST 36 (14-36) U/L ALT 37 H (6-35) U/L Alkaline Phosphatase 56 (38-126) U/L Total Creatine Kinase 95 (30-135) U/L Total Protein 7.1 (6.3-8.2) g/dL Albumin 4.5 (3.5-5.1) g/dL Discharge Plan Discharge Clinical Impression: Acute hypokalemia, Heat effect, Anxiety Patient Disposition: Home Condition: Improved Instructions: Antibiotic Form, Heat Exhaustion (ED), Hypokalemia (ED) Patient Language: Malian Prescriptions: No Action metoprolol succinate 50 mg tablet extended release 24 hr 50 mg PO DAILY escitalopram oxalate 10 mg tablet 10 mg PO DAILY aspirin 81 mg tablet,delayed release (DR/EC) 81 mg PO DAILY Follow-up/Referrals: Mary,KRISTIE Murrieta [Primary Care Provider] - Stand Alone Forms: Work/School Release IP
[2025-01-05 18:24] LABS: Hematocrit 39.0 % (35.0-49.0); Hemoglobin 13.2 g/dL (12.0-15.0); Immature Granulocyte Percent A 0.3 % (0.0-0.0); Lymphocytes Absolute Auto 2.56 K/mm3 (1.10-4.50); Mean Corpuscular HGB Conc 33.8 g/dL (32-36); Mean Corpuscular Hemoglobin 31.4 pg (27.0-31.0); Mean Corpuscular Volume 92.6 fL (78.0-102.0); Nucleated Red Blood Cells Absolute Auto 0.00 K/mm3 (0.00-0.00); Nucleated Red Blood Cells Perc 0.0 % (0-0.0); Platelet Count Result 245 K/mm3 (150-420); Red Blood Count 4.21 M/mm3 (4.20-5.40); White Blood Count 7.8 K/mm3 (4.8-10.8)
--- OUTSIDE RECORDS SUMMARY | 2025-01-05 18:30 | XMS_ITS | Clinical Summary ---
Author Organization [facility] Address [facility] [place] [address] Care Team Providers Care Domestic Travel Consultant Name Role Phone Unavailable Primary Care Provider [...] patient's age to complete this topic Insurance [facility]
--- OUTSIDE RECORDS SUMMARY | 2025-01-05 18:30 | XMS_ITS | Clinical Summary ---
Author Organization [facility] Address [address] [place] [address] Phone Care Team Providers Care Pipe Manufacture Supervisor Name Role Phone Unavailable Primary Care Provider [...]
--- OUTSIDE RECORDS SUMMARY | 2025-01-05 18:30 | XMS_ITS | Clinical Summary ---
Author Organization [facility] Address [address] [address] Phone Care Team Providers Care Patch Washer Name Role Phone Jose Hernandez Primary Care Provider Allergies No known active allergies Medications omeprazole [...] on file Legal Sex Female 10:46 AM RECONDITIONER Gender Identity Not on file Sexual Orientation [...] to complete this topic Insurance Care Teams Patch Washer Relationship Specialty Start Date End Date Jose Hernandez PAC [address] [place] [address] PCP - General Physician Mine Production Engineer 07/27/16
[2025-01-05 18:35] LABS: Alanine Aminotransferase 37 U/L (6-35); Albumin Level 4.5 g/dL (3.5-5.1); Alkaline Phosphatase 56 U/L (38-126); Anion Gap 7 mmol/L (4-12); Aspartate Amino Transferase 36 U/L (14-36); Bilirubin,Total 0.7 mg/dL (0.2-1.3); Blood Urea Nitrogen 14 mg/dL (7-17); Calcium 9.1 mg/dL (8.4-10.2); Carbon Dioxide 25 mmol/L (22-30); Chloride 103 mmol/L (98-107); Creatine Kinase 95 U/L (30-135); Estimated CRCL calculation 77 ml/min; Estimated Glomerular Filt Rate > 60; Glucose 112 mg/dL (65-110); Osmolality Calculated 281 mOsm/kg (285-295); Potassium 3.2 mmol/L (3.4-5.0); Sodium 135 mmol/L (137-145); Total Protein 7.1 g/dL (6.3-8.2)
[2025-01-05] MEDS: SODIUM CHLORIDE 0.9% IV 1,000 ML 999 ML IV CONT (18:39)
[2025-01-05] MEDS: LORazepam (*CRX) 1 MG TABLET PO (18:39)
[2025-01-05] MEDS: ONDANSETRON HCL ODT 4 MG TABLET PO (18:39)
[2025-01-05] MEDS: POTASSIUM CHLORIDE 20 MEQ ER TABLET 40 MEQ PO (18:48)
--- NOTE | 2025-01-05 18:53 | PC.NURSE ---
report to jn glover
--- NOTE | 2025-01-05 19:19 | PC.NURSE ---
PT up to restroom with steady gait. IV infusing w/o s/s infiltration. Pt states that her primary physician is likely going to add Losartan to her metoprolol as her BP was 178/? in the office at last visit. Pt states that she still feels shaky. Pt has wet shirt noted pt states that she put water on it and feels good and is not diaphoresis.
[2025-01-05 19:45] VITALS: BP 194/99; PULSE 63; RESP 18; O2SAT 97
== END 2025-01-05 19:50 | disposition home or self-care (01) ==
PROVIDERS: Emergency Provider Emergency Medicine; PCP Physician Assistant
DX: E87.6 Hypokalemia (principal); T67.9XXA Effect of heat and light, unspecified, initial encounter; X30.XXXA Exposure to excessive natural heat, initial encounter; F41.9 Anxiety disorder, unspecified; F17.200 Nicotine dependence, unspecified, uncomplicated
CPT/HCPCS: 36415; 80053; 82550; 85025; 96360; 99283; A9270; J7030